=== PATIENT | female | born 1955 | race Caucasian/White ===

== ENCOUNTER 2016-12-16 14:27 | Observation (INO) | payer OTHER ==
[~2016-12-16] VITALS: Ht 162.6 cm; Wt 62.2 kg
[~2016-12-16 14:27] MED LIST: AMBIEN10 MG PO; AMITRIPTYLINE H50 MG PO; AMLODIPINE-VAL1 EAC3 PO; AVINZA30 MG PO; BUSPAR15 MG PO; CELECOXIB200 MG PO; CLONIDINE HCL0.1 MG PO; COLACE100 MG PO; CYMBALTA60 MG PO; ELAVIL10 MG PO; FLOVENT 11120 INHALA IH; GABAPENTIN300 MG PO; HYDROCODON-ACE1 EAC7 PO; IBUPROFEN400 MG PO; LISINOPRIL10 MG PO; LISINOPRIL20 MG PO; LISINOPRIL40 MG PO; LOPRESSOR50 MG PO; LORAZEPAM0.5 MG PO; LOVENOX40 MG/0.4 SC; MELOXICAM7.5 MG PO; METHADONE10 MG PO; MOBIC7.5 MG PO; MORPHINE SULFAT15 MG PO; MOTRIN800 MG PO; NAPROXEN SODIU550 MG PO; NEURONTIN100 MG PO; NORCO 10/3251 TABLET PO; OMEPRAZOLE20 MG PO; OMEPRAZOLE40 M1 PO; PANTOPRAZOLE SO40 MG PO; PROVENTIL HFA6.7 GM IH; PROZAC40 MG PO; SENNA-TIME S T1 EACH PO; THERAGRAN1 TABLET PO; TRAMADOL HCL50 MG PO; TRAZODONE HCL50 MG PO; ULTRAM50 MG PO; VITAMIN B-1100 MG PO; XANAX0.5 MG PO; ZESTRIL20 MG PO; ZOLOFT50 MG PO; ZOLPIDEM TARTRA10 MG PO; ZOLPIDEM TARTRAT5 MG PO
[2016-12-16] MEDS ORDERED: LISINOPRIL40 MG PO (14:57)
[2016-12-16] MEDS ORDERED: GABAPENTIN600 MG PO (14:58)
[2016-12-16] MEDS ORDERED: ZOLPIDEM TARTRAT5 MG PO (15:00)
[2016-12-16] MEDS ORDERED: MORPHINE SULFAT15 M1 PO (15:00)
[2016-12-16] MEDS ORDERED: MORPHINE SULFAT15 MG PO (15:01)
[2016-12-16 15:06] LABS: HEMATOCRIT 39.7 % (36.0-46.0); MCH 29.4 PG (29.0-34.0); MCHC 33.2 G/DL (30.0-36.0); MCV 88.4 FL (83-99); MEAN PLAT.VOLUME 10.3 uM^3 (9.5-12.4); PLATELET COUNT 128 K/uL (156-360); RBC DIS.WIDTH-CV 14.7 % (11.8-14.6); RBC DIS.WIDTH-SD 46.5 % (39-53); RED BLOOD COUNT 4.49 M/uL (3.80-5.20); WHITE BLOOD COUNT 11.1 K/uL (4.1-10.2)
[2016-12-16 15:14] LABS: CHLORIDE 91 mEq/L (99-109); SODIUM 129 mEq/L (136-147)
[2016-12-16 15:16] LABS: GLUCOSE 91 mg/dL (70-99); PROTHROMBIN TIME 10.4 (9.2-11.2); PTT 25.8 (25-32)
[2016-12-16 15:17] LABS: ANION GAP 17 MEQ/L (2-14)
[2016-12-16 15:19] LABS: SERUM ETHYL ALCOHOL 98 mg/dL
[2016-12-16 15:20] LABS: GFR ESTIMATE (CALCULATED) 22 mL/min/; UREA NITROGEN (BUN) 65 mg/dL (9-23)
[2016-12-16 15:51] LABS: ADD MIUA? YES; BILIRUBIN NEGATIVE; BLOOD LARGE; COLOR YELLOW ((YELLOW)); GLUCOSE (STRIP) NEGATIVE; KETONES NEGATIVE; LEUKOCYTES NEGATIVE; NITRITE NEGATIVE; PROTEIN (STRIP) 30; SPECIFIC GRAVITY 1.017 (1.000-1.030)
[2016-12-16 16:00] LABS: AMPHETAMINE NEGATIVE (500 ng/mL); BARBITURATES NEGATIVE (200 ng/mL); COCAINE NEGATIVE (150 ng/mL); INTERNAL CONTROLS VALID? YES; METHADONE PRESUMPTIVE POSITIVE (200 ng/mL); METHAMPHETAMINE NEGATIVE (500 ng/mL); OPIATES (MORPHINE) PRESUMPTIVE POSITIVE (100 ng/mL); OXYCODONE NEGATIVE (100 ng/mL); PHENCYCLIDINE NEGATIVE (25 ng/mL); PROPOXYPHENE NEGATIVE (300 ng/mL); THC CANNABINOIDS NEGATIVE (50 ng/mL); TRICYCLIC ANTIDEPRESSANTS NEGATIVE (300 ng/mL)
[2016-12-16 16:01] LABS: ADD MEDTOX COMMENT Y; BENZODIAZEPINES PRESUMPTIVE POSITIVE (150 ng/mL)
[2016-12-16 16:39] LABS: BENZODIAZEPINES QUANT VALUE 0 NG/ML
[2016-12-16 16:40] LABS: BENZODIAZEPINES, URINE SCREEN Negative (200 ng/mL)
[2016-12-16] MEDS ORDERED: ONE-A-DAY ESSE1 EAC1 PO (16:49)
[2016-12-16] MEDS ORDERED: ATORVASTATIN CA40 MG PO (16:49)
[2016-12-16] MEDS ORDERED: LO-DOSE ASPIRIN81 M2 PO (16:49)
[2016-12-16] MEDS ORDERED: LORAZEPAM0.5 MG PO (16:49)
[2016-12-16] MEDS ORDERED: SERTRALINE HCL50 MG PO (16:50)
[2016-12-16] MEDS ORDERED: FUROSEMIDE20 MG PO (16:50)
[2016-12-16 17:09] LABS: RED BLOOD CELLS RARE /HPF (0-5); WHITE BLOOD CELLS RARE /HPF (0-5)
[2016-12-16 17:10] LABS: BACTERIA RARE; CASTS NONE SEEN /LPF; CRYSTALS NONE SEEN; EPITHELIAL CELLS RARE; MUCUS NONE SEEN; UCUL ADDED? NO
[2016-12-16 17:56] LABS: MAGNESIUM 2.7 mg/dL (1.3-2.7)
[2016-12-16 17:59] LABS: TOTAL BILIRUBIN 1.3 mg/dL (0.0-1.0)
[2016-12-16 18:00] LABS: ALKALINE PHOSPHATASE 99 IU/L (3-129)
[2016-12-16 18:03] LABS: DIRECT BILIRUBIN 0.8 mg/dL (0.0-0.3)
[2016-12-16 19:55] VITALS: BP 150/70
[2016-12-16 23:47] VITALS: BP 144/64
[2016-12-17 03:44] VITALS: BP 141/72
[2016-12-17 05:45] LABS: INTER. NORMALIZED RATIO 1.1; PROTHROMBIN TIME 10.7 (9.2-11.2); PTT 26.8 (25-32)
[2016-12-17 06:40] LABS: ANION GAP 8 MEQ/L (2-14); CHLORIDE 101 MEQ/L (99-109); GLUCOSE 75 mg/dL (70-99); HEMATOCRIT 38.4 % (36.0-46.0); MCH 28.6 PG (29.0-34.0); MCHC 31.3 G/DL (30.0-36.0); MCV 91.6 FL (83-99); MEAN PLAT.VOLUME 10.7 uM^3 (9.5-12.4); PLATELET COUNT 137 K/uL (156-360); POTASSIUM 3.7 MEQ/L (3.7-5.4); RBC DIS.WIDTH-CV 14.9 % (11.8-14.6); RBC DIS.WIDTH-SD 50.3 % (39-53); RED BLOOD COUNT 4.19 M/uL (3.80-5.20); SAMPLE HEMOLYSIS CHECK 0; SAMPLE ICTERIC CHECK 0; SAMPLE LIPEMIA CHECK 0; UREA NITROGEN (BUN) 49 mg/dL (9-23)
[2016-12-17 06:41] LABS: GFR ESTIMATE (CALCULATED) 48 mL/min/; SODIUM 136 MEQ/L (136-147)
[2016-12-17 06:45] LABS: WHITE BLOOD COUNT 7.6 K/uL (4.1-10.2)
[2016-12-17 08:00] VITALS: BP 178/75
[2016-12-17 11:56] VITALS: BP 163/82
[2016-12-17 12:09] LABS: CREATINE KINASE 1244 IU/L (1-294)
[2016-12-17] MEDS ORDERED: NIFEDIPINE ER30 MG PO (12:39)
[2016-12-17] MEDS ORDERED: LISINOPRIL40 MG PO ×2 (12:39→14:17)
[2016-12-17] MEDS ORDERED: GABAPENTIN600 MG PO (14:17)
[2016-12-17] MEDS ORDERED: NEURONTIN100 MG PO (14:22)
[2016-12-17] MEDS ORDERED: LISINOPRIL20 MG PO (14:22)
== END 2016-12-18 02:35 | disposition home or self-care (01) ==
LOC: EME 14:27 → 5WEST 16:58 → EDOF 16:58 → 5WEST 19:36
PROVIDERS: Emergency Medicine; Internal Medicine
DX: N17.9 Acute kidney failure, unspecified (principal); F10.230 Alcohol dependence with withdrawal, uncomplicated; E87.1 Hypo-osmolality and hyponatremia; E86.0 Dehydration; I10 Essential (primary) hypertension; B18.2 Chronic viral hepatitis C; G89.29 Other chronic pain; M54.9 Dorsalgia, unspecified; D69.6 Thrombocytopenia, unspecified; J44.9 Chronic obstructive pulmonary disease, unspecified; E78.5 Hyperlipidemia, unspecified; Z91.19 Patient's noncompliance with other medical treatment and regimen
CPT/HCPCS: 70450; 74150; 80048; 80076; 81003; 82550; 82570; 83605; 83735; 84100; 84156; 84999; 85025; 85027; 85610; 85730; 93005; 94799; 99281; 99285; C9113; G0378; G0480; G8987 GO CI; G8988 GO CH; J2060; J3411; J3475; J7030

== ENCOUNTER 2016-12-18 19:06 | Emergency (ER) | payer OTHER ==
[~2016-12-18] VITALS: Ht 162.6 cm; Wt 55.1 kg
[~2016-12-18 19:06] MED LIST changes: +ATORVASTATIN CA40 MG PO; +FUROSEMIDE20 MG PO; +GABAPENTIN600 MG PO; +LO-DOSE ASPIRIN81 M2 PO; +MORPHINE SULFAT15 M1 PO; +NIFEDIPINE ER30 MG PO; +ONE-A-DAY ESSE1 EAC1 PO; +SERTRALINE HCL50 MG PO
[2016-12-18 20:04] LABS: ADD MIUA? YES; BILIRUBIN NEGATIVE; BLOOD TRACE; COLOR YELLOW ((YELLOW)); GLUCOSE (STRIP) NEGATIVE; KETONES NEGATIVE; LEUKOCYTES NEGATIVE; NITRITE NEGATIVE; PROTEIN (STRIP) 30; SPECIFIC GRAVITY 1.015 (1.000-1.030); UROBILINOGEN 0.2 MG/DL (0.2-1.0)
[2016-12-18 20:26] LABS: AMPHETAMINE NEGATIVE (500 ng/mL); BARBITURATES NEGATIVE (200 ng/mL); BENZODIAZEPINES PRESUMPTIVE POSITIVE (150 ng/mL); COCAINE NEGATIVE (150 ng/mL); INTERNAL CONTROLS VALID? YES; METHADONE PRESUMPTIVE POSITIVE (200 ng/mL); METHAMPHETAMINE NEGATIVE (500 ng/mL); OPIATES (MORPHINE) PRESUMPTIVE POSITIVE (100 ng/mL); OXYCODONE NEGATIVE (100 ng/mL); PHENCYCLIDINE NEGATIVE (25 ng/mL); PROPOXYPHENE NEGATIVE (300 ng/mL); THC CANNABINOIDS NEGATIVE (50 ng/mL); TRICYCLIC ANTIDEPRESSANTS NEGATIVE (300 ng/mL)
[2016-12-18 20:27] LABS: ADD MEDTOX COMMENT Y
[2016-12-18 20:37] LABS: BACTERIA RARE; CASTS NONE SEEN /LPF; CRYSTALS NONE SEEN; EPITHELIAL CELLS RARE; MUCUS NONE SEEN; RED BLOOD CELLS NONE SEEN /HPF (0-5); UBAC NUMBER 2747.9; UCUL ADDED? NO; UEPI NUMBER 5.5; URBC NUMBER 9.5; UWBC NUMBER 5.2; WHITE BLOOD CELLS NONE SEEN /HPF (0-5)
[2016-12-18 20:55] LABS: HEMATOCRIT 46.3 % (36.0-46.0); MCH 29.7 PG (29.0-34.0); MCHC 34.3 G/DL (30.0-36.0); MCV 86.4 FL (83-99); MEAN PLAT.VOLUME 9.8 uM^3 (9.5-12.4); PLATELET COUNT 179 K/uL (156-360); RBC DIS.WIDTH-CV 14.8 % (11.8-14.6); RBC DIS.WIDTH-SD 45.4 % (39-53); RED BLOOD COUNT 5.36 M/uL (3.80-5.20)
[2016-12-18 20:59] LABS: CHLORIDE 93 mEq/L (99-109); POTASSIUM 2.9 mEq/L (3.7-5.4); SODIUM 134 mEq/L (136-147)
[2016-12-18 21:02] LABS: ANION GAP 16 MEQ/L (2-14)
[2016-12-18 21:03] LABS: TOTAL BILIRUBIN 1.1 mg/dL (0.0-1.0)
[2016-12-18 21:04] LABS: SERUM ETHYL ALCOHOL 152 mg/dL
[2016-12-18 21:05] LABS: ALKALINE PHOSPHATASE 90 IU/L (3-129); GFR ESTIMATE (CALCULATED) > 59 mL/min/; GLUCOSE 94 mg/dL (70-99)
[2016-12-18 21:07] LABS: BENZODIAZEPINES, URINE SCREEN POSITIVE (200 ng/mL)
[2016-12-18 21:08] LABS: CREATINE KINASE 353 IU/L (1-294); UREA NITROGEN (BUN) 14 mg/dL (9-23)
[2016-12-18 22:56] VITALS: BP 134/69
== END 2016-12-18 22:58 | disposition home or self-care (01) ==
LOC: EME → EDBD 19:06 → EME 19:06
PROVIDERS: Emergency Medicine
DX: E87.6 Hypokalemia (principal); F10.229 Alcohol dependence with intoxication, unspecified; K70.10 Alcoholic hepatitis without ascites; E87.2 Acidosis; G89.29 Other chronic pain; Z79.891 Long term (current) use of opiate analgesic; Z79.82 Long term (current) use of aspirin; F17.200 Nicotine dependence, unspecified, uncomplicated; Y90.6 Blood alcohol level of 120-199 mg/100 ml
CPT/HCPCS: 71010; 80053; 81003; 82550; 83605; 84999; 85027; 99281; 99284; G0480; J7030

== ENCOUNTER 2017-04-13 13:01 | Inpatient (IN) | payer OTHER ==
[~2017-04-13] VITALS: Ht 162.6 cm; Wt 61.0 kg
[2017-04-13 14:30] LABS: MCH 30.9 PG (29.0-34.0); MCHC 33.8 G/DL (30.0-36.0); MCV 91.3 FL (83-99); MEAN PLAT.VOLUME 9.9 uM^3 (9.5-12.4); PLATELET COUNT 110 K/uL (156-360); RBC DIS.WIDTH-CV 13.5 % (11.8-14.6); RED BLOOD COUNT 5.15 M/uL (3.80-5.20)
[2017-04-13 14:42] LABS: CHLORIDE 102 mEq/L (99-109); SODIUM 137 mEq/L (136-147)
[2017-04-13 14:44] LABS: GLUCOSE 121 mg/dL (70-99)
[2017-04-13 14:45] LABS: ANION GAP 14 MEQ/L (2-14)
[2017-04-13 14:47] LABS: SERUM ETHYL ALCOHOL 327 mg/dL
[2017-04-13 14:48] LABS: GFR ESTIMATE (CALCULATED) > 59 mL/min/
[2017-04-13 14:49] LABS: UREA NITROGEN (BUN) 16 mg/dL (9-23)
[2017-04-13 16:44] LABS: AMPHETAMINE NEGATIVE (500 ng/mL); BARBITURATES NEGATIVE (200 ng/mL); BENZODIAZEPINES PRESUMPTIVE POSITIVE (150 ng/mL); COCAINE NEGATIVE (150 ng/mL); INTERNAL CONTROLS VALID? YES; METHADONE PRESUMPTIVE POSITIVE (200 ng/mL); METHAMPHETAMINE NEGATIVE (500 ng/mL); OPIATES (MORPHINE) NEGATIVE (100 ng/mL); OXYCODONE NEGATIVE (100 ng/mL); PHENCYCLIDINE NEGATIVE (25 ng/mL); PROPOXYPHENE NEGATIVE (300 ng/mL); THC CANNABINOIDS NEGATIVE (50 ng/mL); TRICYCLIC ANTIDEPRESSANTS NEGATIVE (300 ng/mL)
[2017-04-13 16:50] LABS: ADD MEDTOX COMMENT Y
[2017-04-13 17:07] LABS: BENZODIAZEPINES, URINE SCREEN POSITIVE (200 ng/mL)
[2017-04-14] VITALS (7 sets, daily range): BP systolic 156–192; BP diastolic 81–97
[2017-04-14 07:12] LABS: HEMATOCRIT 47.1 % (36.0-46.0); MCH 30.6 PG (29.0-34.0); MCHC 33.8 G/DL (30.0-36.0); MCV 90.6 FL (83-99); MEAN PLAT.VOLUME 10.9 uM^3 (9.5-12.4); PLATELET COUNT 103 K/uL (156-360); RBC DIS.WIDTH-CV 13.3 % (11.8-14.6); RBC DIS.WIDTH-SD 44.6 % (39-53); WHITE BLOOD COUNT 8.2 K/uL (4.1-10.2)
[2017-04-14] MEDS ORDERED: METOPROLOL SUCC50 MG PO (11:59)
[2017-04-15 03:45] VITALS: BP 170/88
[2017-04-15 07:30] VITALS: BP 190/114
[2017-04-15 07:46] LABS: ALKALINE PHOSPHATASE 74 IU/L (3-129); ANION GAP 11 MEQ/L (2-14); CHLORIDE 98 MEQ/L (99-109); GFR ESTIMATE (CALCULATED) > 59 mL/min/; GLUCOSE 96 mg/dL (70-99); POTASSIUM 3.8 MEQ/L (3.7-5.4); SAMPLE HEMOLYSIS CHECK 0; SAMPLE ICTERIC CHECK 0; SAMPLE LIPEMIA CHECK 0; SODIUM 135 MEQ/L (136-147); TOTAL BILIRUBIN 1.7 MG/DL (0.0-1.0); UREA NITROGEN (BUN) 18 mg/dL (9-23)
[2017-04-15 11:11] VITALS: BP 167/83
[2017-04-15 15:10] VITALS: BP 176/83
[2017-04-15 20:05] VITALS: BP 170/90
[2017-04-15 23:52] VITALS: BP 177/78
[2017-04-16 03:43] VITALS: BP 180/95
[2017-04-16 08:21] VITALS: BP 175/96
[2017-04-16 12:16] VITALS: BP 162/88
[2017-04-16 15:57] VITALS: BP 148/92
[2017-04-16 20:43] VITALS: BP 176/86
[2017-04-17] VITALS (7 sets, daily range): BP systolic 115–165; BP diastolic 61–105
[2017-04-18 07:35] VITALS: BP 149/82
[2017-04-18 12:02] VITALS: BP 156/75
[2017-04-18 17:10] VITALS: BP 156/89
[2017-04-18 19:54] VITALS: BP 165/85
[2017-04-18 23:44] VITALS: BP 165/83
[2017-04-19 04:00] VITALS: BP 193/89
[2017-04-19 05:02] VITALS: BP 179/84
[2017-04-19 07:49] VITALS: BP 177/82
[2017-04-19] MEDS ORDERED: LOPRESSOR50 MG PO (11:12)
[2017-04-19 11:33] VITALS: BP 156/77
== END 2017-04-19 14:15 | disposition home or self-care (01) | DRG 897 ==
LOC: EME 13:01 → EDOF 21:22 → EME 21:22 → 5SOUTH 04-14 02:19 → EDOF 04-14 02:19 → 5SOUTH 04-14 03:36
PROVIDERS: Emergency Medicine; Internal Medicine
DX: F10.229 Alcohol dependence with intoxication, unspecified (principal); F10.239 Alcohol dependence with withdrawal, unspecified; F33.41 Major depressive disorder, recurrent, in partial remission; J44.9 Chronic obstructive pulmonary disease, unspecified; R45.851 Suicidal ideations; I10 Essential (primary) hypertension; K21.9 Gastro-esophageal reflux disease without esophagitis; G89.29 Other chronic pain; Z96.651 Presence of right artificial knee joint; F17.210 Nicotine dependence, cigarettes, uncomplicated; B18.2 Chronic viral hepatitis C; M54.9 Dorsalgia, unspecified
CPT/HCPCS: 80048; 80053; 84999; 85027; 90839; 93970; 99281; 99285; G0480; J1644; J2060; J3411; J3475; J7030; J7050; S0028

== ENCOUNTER 2017-05-10 14:00 | Emergency (ER) | payer OTHER ==
[~2017-05-10] VITALS: Ht 167.6 cm; Wt 65.8 kg
[~2017-05-10 14:00] MED LIST changes: +METOPROLOL SUCC50 MG PO
[2017-05-10 15:13] LABS: HEMATOCRIT 41.6 % (36.0-46.0); MCH 31.3 PG (29.0-34.0); MCHC 34.1 G/DL (30.0-36.0); MCV 91.8 FL (83-99); RBC DIS.WIDTH-CV 14.3 % (11.8-14.6); RBC DIS.WIDTH-SD 48.6 % (39-53); RED BLOOD COUNT 4.53 M/uL (3.80-5.20); WHITE BLOOD COUNT 7.6 K/uL (4.1-10.2)
[2017-05-10 15:33] LABS: CHLORIDE 107 mEq/L (99-109); POTASSIUM 4.2 mEq/L (3.7-5.4); SODIUM 143 mEq/L (136-147)
[2017-05-10 15:34] LABS: GLUCOSE 87 mg/dL (70-99)
[2017-05-10 15:36] LABS: ANION GAP 11 MEQ/L (2-14)
[2017-05-10 15:37] LABS: SERUM ETHYL ALCOHOL 358 mg/dL
[2017-05-10 15:38] LABS: GFR ESTIMATE (CALCULATED) > 59 mL/min/
[2017-05-10 15:39] LABS: UREA NITROGEN (BUN) 24 mg/dL (9-23)
[2017-05-10 16:39] LABS: PLATELET COUNT 177 K/uL (156-360)
[2017-05-10 17:49] LABS: AMPHETAMINE NEGATIVE (500 ng/mL); BARBITURATES NEGATIVE (200 ng/mL); BENZODIAZEPINES PRESUMPTIVE POSITIVE (150 ng/mL); COCAINE NEGATIVE (150 ng/mL); INTERNAL CONTROLS VALID? YES; METHADONE NEGATIVE (200 ng/mL); METHAMPHETAMINE NEGATIVE (500 ng/mL); OPIATES (MORPHINE) NEGATIVE (100 ng/mL); OXYCODONE NEGATIVE (100 ng/mL); PHENCYCLIDINE NEGATIVE (25 ng/mL); PROPOXYPHENE NEGATIVE (300 ng/mL); THC CANNABINOIDS NEGATIVE (50 ng/mL); TRICYCLIC ANTIDEPRESSANTS NEGATIVE (300 ng/mL)
[2017-05-10 17:50] LABS: ADD MEDTOX COMMENT Y
[2017-05-10 18:43] LABS: BENZODIAZEPINES, URINE SCREEN POSITIVE (200 ng/mL)
[2017-05-11] MEDS ORDERED: LIBRIUM25 MG PO (02:10)
[2017-05-11 02:52] VITALS: BP 174/97
== END 2017-05-11 02:11 | disposition home or self-care (01) ==
LOC: EME 14:00
DX: F10.229 Alcohol dependence with intoxication, unspecified (principal); F33.1 Major depressive disorder, recurrent, moderate; R51 Headache; I10 Essential (primary) hypertension; Y90.8 Blood alcohol level of 240 mg/100 ml or more; Z79.82 Long term (current) use of aspirin; F17.200 Nicotine dependence, unspecified, uncomplicated
CPT/HCPCS: 70450; 80048; 84999; 85027; 90839; 99281; 99285; G0480; J2060

== ENCOUNTER 2017-11-13 20:10 | Inpatient (IN) | payer OTHER ==
[~2017-11-13] VITALS: Ht 162.6 cm; Wt 72.0 kg
[~2017-11-13 20:10] MED LIST changes: +LIBRIUM25 MG PO
[2017-11-13 20:55] LABS: HEMATOCRIT 44.3 % (36.0-46.0); MCH 30.3 PG (29.0-34.0); MCHC 33.9 G/DL (30.0-36.0); MCV 89.5 FL (83-99); MEAN PLAT.VOLUME 8.6 uM^3 (9.5-12.4); PLATELET COUNT 277 K/uL (156-360); RBC DIS.WIDTH-CV 13.2 % (11.8-14.6); RBC DIS.WIDTH-SD 43.2 % (39-53); RED BLOOD COUNT 4.95 M/uL (3.80-5.20); WHITE BLOOD COUNT 11.5 K/uL (4.1-10.2)
[2017-11-13 21:00] LABS: CHLORIDE 104 mEq/L (99-109); POTASSIUM 3.8 mEq/L (3.7-5.4); SODIUM 142 mEq/L (136-147)
[2017-11-13 21:02] LABS: GLUCOSE 96 mg/dL (70-99)
[2017-11-13 21:03] LABS: ANION GAP 11 MEQ/L (2-14)
[2017-11-13 21:05] LABS: GFR ESTIMATE (CALCULATED) > 59 mL/min/; SERUM ETHYL ALCOHOL 281 mg/dL
[2017-11-13 21:06] LABS: UREA NITROGEN (BUN) 20 mg/dL (9-23)
[2017-11-14 00:14] LABS: ADD MEDTOX COMMENT Y; AMPHETAMINE NEGATIVE (500 ng/mL); BARBITURATES NEGATIVE (200 ng/mL); BENZODIAZEPINES PRESUMPTIVE POSITIVE (150 ng/mL); COCAINE NEGATIVE (150 ng/mL); INTERNAL CONTROLS VALID? YES; METHADONE NEGATIVE (200 ng/mL); METHAMPHETAMINE NEGATIVE (500 ng/mL); OPIATES (MORPHINE) NEGATIVE (100 ng/mL); OXYCODONE NEGATIVE (100 ng/mL); PHENCYCLIDINE NEGATIVE (25 ng/mL); PROPOXYPHENE NEGATIVE (300 ng/mL); THC CANNABINOIDS NEGATIVE (50 ng/mL); TRICYCLIC ANTIDEPRESSANTS NEGATIVE (300 ng/mL)
[2017-11-14 02:53] LABS: BENZODIAZEPINES, URINE SCREEN POSITIVE (200 ng/mL)
[2017-11-14 09:42] VITALS: BP 181/95
[2017-11-14 09:56] VITALS: BP 181/95
[2017-11-14] MEDS ORDERED: EXFORGE HCT 101 EAC2 PO (11:46)
[2017-11-14] MEDS ORDERED: DIOVAN HCT 11 TABLET PO (11:47)
[2017-11-14] MEDS ORDERED: DETROL LA4 MG PO (11:50)
[2017-11-14] MEDS ORDERED: CATAPRES0.1 MG PO (11:51)
[2017-11-14] MEDS ORDERED: OXAZEPAM10 MG PO (11:54)
[2017-11-14] MEDS ORDERED: ATARAX,VISTARIL25 MG PO (11:56)
[2017-11-14] MEDS ORDERED: AMBIEN10 MG PO (11:58)
[2017-11-14] MEDS ORDERED: AMBIEN5 MG PO (12:01)
[2017-11-14] MEDS ORDERED: ADVIL PM LI1 CAPSULE PO (12:04)
[2017-11-14] MEDS ORDERED: NICODERM CQ1 EAC2 TD (12:07)
[2017-11-14 14:28] VITALS: BP 196/96
[2017-11-14 15:37] VITALS: BP 164/74
[2017-11-14 19:38] VITALS: BP 137/87
[2017-11-15 07:51] VITALS: BP 206/110
[2017-11-15 12:59] VITALS: BP 161/75
[2017-11-15 15:25] VITALS: BP 133/63
[2017-11-15 17:45] VITALS: BP 189/84
[2017-11-16 07:52] VITALS: BP 158/81
[2017-11-16 13:15] VITALS: BP 143/73
[2017-11-16 15:32] VITALS: BP 133/66
[2017-11-16 21:39] VITALS: BP 160/70
[2017-11-17 07:56] VITALS: BP 117/66
[2017-11-17 09:53] VITALS: BP 129/6
[2017-11-17 15:27] VITALS: BP 134/60
[2017-11-17 20:30] VITALS: BP 192/85
[2017-11-18 07:45] VITALS: BP 158/70
[2017-11-18 10:24] VITALS: BP 140/80
[2017-11-18 12:18] VITALS: BP 138/72
[2017-11-18 15:22] VITALS: BP 140/90
[2017-11-18 19:55] VITALS: BP 132/66
[2017-11-18 22:16] VITALS: BP 156/84
[2017-11-19 07:56] VITALS: BP 162/88
[2017-11-19] MEDS ORDERED: CLONIDINE HCL0.1 MG PO (09:05)
[2017-11-19] MEDS ORDERED: APRESOLINE25 MG PO (09:05)
[2017-11-19] MEDS ORDERED: LOPRESSOR50 MG PO (09:05)
[2017-11-19] MEDS ORDERED: SERTRALINE HCL100 MG PO (09:05)
[2017-11-19] MEDS ORDERED: DITROPAN5 MG PO (09:05)
[2017-11-19 11:50] VITALS: BP 137/82
== END 2017-11-19 14:08 | disposition home or self-care (01) | DRG 885 ==
LOC: EME 20:10 → EDOF 11-14 05:37 → 1WEST 11-14 05:37 → ENRESERV 11-14 07:11 → 1WEST 11-14 09:31
DX: F33.0 Major depressive disorder, recurrent, mild (principal); F10.220 Alcohol dependence with intoxication, uncomplicated; Y90.8 Blood alcohol level of 240 mg/100 ml or more; R45.851 Suicidal ideations; Z59.0 Homelessness; Z96.653 Presence of artificial knee joint, bilateral; B18.2 Chronic viral hepatitis C; F17.200 Nicotine dependence, unspecified, uncomplicated; F41.9 Anxiety disorder, unspecified; J44.9 Chronic obstructive pulmonary disease, unspecified; I10 Essential (primary) hypertension; Z56.0 Unemployment, unspecified; E66.3 Overweight; Z68.27 Body mass index [BMI] 27.0-27.9, adult
CPT/HCPCS: 71020; 80048; 84999; 85027; 90839; 97150 GO; 97165 GO; 99281; 99284; G0480

== ENCOUNTER 2018-02-25 09:38 | Inpatient (IN) | payer OTHER ==
[~2018-02-25] VITALS: Ht 162.6 cm; Wt 74.6 kg
[~2018-02-25 09:38] MED LIST changes: +ADVIL PM LI1 CAPSULE PO; +AMBIEN5 MG PO; +APRESOLINE25 MG PO; +ATARAX,VISTARIL25 MG PO; +CATAPRES0.1 MG PO; +DETROL LA4 MG PO; +DIOVAN HCT 11 TABLET PO; +DITROPAN5 MG PO; +EXFORGE HCT 101 EAC2 PO; +NICODERM CQ1 EAC2 TD; +OXAZEPAM10 MG PO; +SERTRALINE HCL100 MG PO
[2018-02-25 11:04] LABS: HEMATOCRIT 40.8 % (36.0-46.0); MCH 29.9 PG (29.0-34.0); MCHC 34.3 G/DL (30.0-36.0); MCV 87.2 FL (83-99); PLATELET COUNT 222 K/uL (156-360); RBC DIS.WIDTH-CV 12.8 % (11.8-14.6); RBC DIS.WIDTH-SD 40.1 % (39-53); RED BLOOD COUNT 4.68 M/uL (3.80-5.20); WHITE BLOOD COUNT 13.4 K/uL (4.1-10.2)
[2018-02-25 11:14] LABS: ALBUMIN 3.1 g/dL (3.2-4.8)
[2018-02-25 11:15] LABS: CHLORIDE 96 mEq/L (99-109); POTASSIUM 3.4 mEq/L (3.7-5.4); SODIUM 135 mEq/L (136-147)
[2018-02-25 11:17] LABS: GLUCOSE 116 mg/dL (70-99); TOTAL PROTEIN 7.3 g/dL (6.4-8.3)
[2018-02-25 11:19] LABS: TOTAL BILIRUBIN 1.1 mg/dL (0.0-1.0)
[2018-02-25 11:20] LABS: ALKALINE PHOSPHATASE 87 IU/L (3-129)
[2018-02-25 11:21] LABS: CREATININE 0.8 mg/dL (0.6-1.3); GFR ESTIMATE (CALCULATED) > 59 mL/min/
[2018-02-25 11:22] LABS: AST (GOT) 31 IU/L (2-34); UREA NITROGEN (BUN) 13 mg/dL (9-23)
[2018-02-25 11:23] LABS: ALT (GPT) 21 IU/L (3-49)
[2018-02-25 11:26] LABS: TROP-I INTERPRETATION NEGATIVE; TROPONIN-I < 0.01 ng/mL (0.0-0.30)
[2018-02-25] MEDS ORDERED: LIPITOR40 MG PO (13:48)
[2018-02-25] MEDS ORDERED: CATAPRES0.1 MG PO (14:01)
[2018-02-25] MEDS ORDERED: PRILOSEC20 MG PO (14:03)
[2018-02-25] MEDS ORDERED: ZOLOFT100 MG PO (14:04)
[2018-02-25] MEDS ORDERED: FLOVENT 22120 INHALA IH (14:05)
[2018-02-25] MEDS ORDERED: VENTOLIN HFA18 GM IH (14:06)
[2018-02-25] MEDS ORDERED: IBUPROFEN800 MG PO (14:06)
[2018-02-25] MEDS ORDERED: ZOLPIDEM TARTRAT5 MG PO (14:07)
[2018-02-25] MEDS ORDERED: ATARAX10 MG PO ×2 (14:07→14:30)
[2018-02-25] MEDS ORDERED: SERAX10 MG PO ×2 (14:08→14:09)
[2018-02-25] MEDS ORDERED: LYRICA50 MG PO (14:32)
[2018-02-25 17:50] VITALS: BP 113/58
[2018-02-25 20:18] VITALS: BP 149/72
[2018-02-26 00:38] VITALS: BP 146/77
[2018-02-26 04:34] VITALS: BP 167/77
[2018-02-26 06:45] LABS: BASOPHIL (%) 0.3 % (0-1); EOSINOPHIL (%) 0.1 % (0-5); HEMATOCRIT 40.8 % (36.0-46.0); HEMOGLOBIN 13.4 G/DL (11.9-15.5); IMMATURE GRANULOCYTE (%) 2.6 % (0.0-0.7); LYMPHOCYTE (%) 8.4 % (15-42); LYMPHOCYTE COUNT 1.1 K/uL (1.0-2.8); MCHC 32.8 G/DL (30.0-36.0); MCV 88.3 FL (83-99); MONOCYTE (%) 3.7 % (3-12); MONOCYTE COUNT 0.5 K/uL (0-0.8); NEUTROPHIL (%) 84.9 % (45-76); NEUTROPHIL COUNT 11.6 K/uL (1.8-6.4); PLATELET COUNT 254 K/uL (156-360); RBC DIS.WIDTH-CV 12.6 % (11.8-14.6); RBC DIS.WIDTH-SD 40.5 % (39-53); RED BLOOD COUNT 4.62 M/uL (3.80-5.20); WHITE BLOOD COUNT 13.6 K/uL (4.1-10.2)
[2018-02-26 07:07] LABS: CHLORIDE 101 MEQ/L (99-109); CREATININE 0.7 MG/DL (0.6-1.3); GFR ESTIMATE (CALCULATED) > 59 mL/min/; GLUCOSE 173 mg/dL (70-99); POTASSIUM 3.3 MEQ/L (3.7-5.4); SODIUM 139 MEQ/L (136-147); UREA NITROGEN (BUN) 14 mg/dL (9-23)
[2018-02-26 07:31] VITALS: BP 145/65
[2018-02-26 11:43] VITALS: BP 140/66
[2018-02-26 16:43] VITALS: BP 143/67
[2018-02-26 20:40] VITALS: BP 120/58
[2018-02-27 00:21] VITALS: BP 159/72
[2018-02-27 04:19] VITALS: BP 123/63
[2018-02-27 07:07] LABS: CHLORIDE 105 MEQ/L (99-109); CREATININE 0.7 MG/DL (0.6-1.3); GFR ESTIMATE (CALCULATED) > 59 mL/min/; GLUCOSE 155 mg/dL (70-99); POTASSIUM 3.8 MEQ/L (3.7-5.4); SODIUM 139 MEQ/L (136-147); UREA NITROGEN (BUN) 18 mg/dL (9-23)
[2018-02-27 08:42] VITALS: BP 138/68
[2018-02-27 12:23] VITALS: BP 150/73
[2018-02-27 15:30] VITALS: BP 188/77
[2018-02-27] MEDS ORDERED: AUGMENTIN875 MG PO (17:08)
== END 2018-02-27 19:23 | disposition home or self-care (01) | DRG 193 ==
LOC: EME 09:38 → EDOF 13:06 → ENRESERV 13:11 → EDOF 13:13 → ENRESERV 16:18 → 5EAST 17:29
PROVIDERS: Family Medicine; Hospitalist; Nurse Practitioner Family
DX: J18.9 Pneumonia, unspecified organism (principal); J96.01 Acute respiratory failure with hypoxia; J44.0 Chronic obstructive pulmonary disease with (acute) lower respiratory infection; J44.1 Chronic obstructive pulmonary disease with (acute) exacerbation; I10 Essential (primary) hypertension; M54.16 Radiculopathy, lumbar region; E87.6 Hypokalemia; Z96.651 Presence of right artificial knee joint; F17.200 Nicotine dependence, unspecified, uncomplicated
CPT/HCPCS: 71046; 71275; 80048; 80053; 81003; 83605; 84484; 85025; 85027; 85379; 87040; 87070; 87205; 87449; 93005; 93971; 94640; 94640 76; 94799; 99202; 99281; 99285; J0295; J0456; J0696; J1650; J2920; J2930; J7030; J7050; J7512

== ENCOUNTER 2018-03-11 16:24 | Emergency (ER) | payer OTHER ==
[~2018-03-11] VITALS: Ht 162.6 cm; Wt 78.4 kg
[~2018-03-11 16:24] MED LIST changes: +ATARAX10 MG PO; +AUGMENTIN875 MG PO; +FLOVENT 22120 INHALA IH; +IBUPROFEN800 MG PO; +LIPITOR40 MG PO; +LYRICA50 MG PO; +PRILOSEC20 MG PO; +SERAX10 MG PO; +VENTOLIN HFA18 GM IH; +ZOLOFT100 MG PO
[2018-03-11] MEDS ORDERED: PERCOCET 5/31 TABLET PO (17:14)
[2018-03-11] MEDS ORDERED: FLEXERIL10 MG PO (17:14)
[2018-03-11 18:27] VITALS: BP 99/44
== END 2018-03-11 18:30 | disposition home or self-care (01) ==
LOC: EME 16:24
DX: G89.29 Other chronic pain (principal); M54.5 Low back pain; J44.9 Chronic obstructive pulmonary disease, unspecified; F41.9 Anxiety disorder, unspecified; F32.9 Major depressive disorder, single episode, unspecified; F17.200 Nicotine dependence, unspecified, uncomplicated; Z96.651 Presence of right artificial knee joint; Z79.82 Long term (current) use of aspirin
CPT/HCPCS: 94640; 99281; 99284

== ENCOUNTER 2018-03-16 11:13 | Emergency (ER) | payer OTHER ==
[~2018-03-16] VITALS: Ht 162.6 cm; Wt 77.3 kg
[~2018-03-16 11:13] MED LIST changes: +FLEXERIL10 MG PO; +PERCOCET 5/31 TABLET PO
[2018-03-16] MEDS ORDERED: ULTRAM50 MG PO (14:40)
[2018-03-16 14:50] VITALS: BP 176/89
== END 2018-03-16 15:02 | disposition home or self-care (01) ==
LOC: EME 11:13
DX: R60.0 Localized edema (principal); M54.32 Sciatica, left side; F17.200 Nicotine dependence, unspecified, uncomplicated; J44.9 Chronic obstructive pulmonary disease, unspecified; G89.29 Other chronic pain; F32.9 Major depressive disorder, single episode, unspecified; F41.9 Anxiety disorder, unspecified; Z96.653 Presence of artificial knee joint, bilateral; Z79.82 Long term (current) use of aspirin
CPT/HCPCS: 93971; 99281; 99284

== ENCOUNTER 2018-04-28 16:06 | Inpatient (IN) | payer OTHER ==
[~2018-04-28] VITALS: Ht 162.6 cm; Wt 72.5 kg
[2018-04-28 17:29] LABS: HEMATOCRIT 31.7 % (36.0-46.0); MCH 29.7 PG (29.0-34.0); MCHC 34.7 G/DL (30.0-36.0); MCV 85.7 FL (83-99); RBC DIS.WIDTH-CV 13.7 % (11.8-14.6); RBC DIS.WIDTH-SD 42.9 % (39-53)
[2018-04-28 17:30] LABS: ALBUMIN 2.9 g/dL (3.2-4.8)
[2018-04-28 17:30] LABS: APPEARANCE CLEAR ((CLEAR)); BILIRUBIN SMALL; BLOOD MODERATE; COLOR AMBER ((YELLOW)); GLUCOSE (STRIP) NEGATIVE; KETONES NEGATIVE; LEUKOCYTES TRACE; NITRITE NEGATIVE; PROTEIN (STRIP) 30; SPECIFIC GRAVITY 1.015 (1.000-1.030)
[2018-04-28 17:31] LABS: CHLORIDE 93 mEq/L (99-109); POTASSIUM 3.9 mEq/L (3.7-5.4); SODIUM 128 mEq/L (136-147)
[2018-04-28 17:33] LABS: GLUCOSE 111 mg/dL (70-99); TOTAL PROTEIN 6.9 g/dL (6.4-8.3)
[2018-04-28 17:36] LABS: SERUM ETHYL ALCOHOL < 10 mg/dL
[2018-04-28 17:36] LABS: BACTERIA NONE SEEN /HPF; EPITHELIAL CELLS RARE /HPF; HYALINE CASTS 15-20 /LPF; MUCUS TRACE /LPF; RED BLOOD CELLS 0-5 /HPF (0-5); UCUL ADDED? YES; WHITE BLOOD CELLS 15-20 /HPF (0-5)
[2018-04-28 17:37] LABS: ALKALINE PHOSPHATASE 412 IU/L (3-129); CREATININE 3.6 mg/dL (0.6-1.3); GFR ESTIMATE (CALCULATED) 14 mL/min/
[2018-04-28 17:38] LABS: AST (GOT) 84 IU/L (2-34)
[2018-04-28 17:39] LABS: UREA NITROGEN (BUN) 67 mg/dL (9-23)
[2018-04-28 17:40] LABS: ALT (GPT) 34 IU/L (3-49); SALICYLATE < 5.0 MG/DL (15-30)
[2018-04-28 17:40] LABS: TROP-I INTERPRETATION NEGATIVE; TROPONIN-I 0.01 ng/mL (0.0-0.30)
[2018-04-28 17:41] LABS: ACETAMINOPHEN (TYLENOL) < 10 mcg/mL (10-30)
[2018-04-28 17:43] LABS: AMPHETAMINE NEGATIVE (500 ng/mL); BARBITURATES NEGATIVE (200 ng/mL); BENZODIAZEPINES PRESUMPTIVE POSITIVE (150 ng/mL); BUPRENORPHINE NEGATIVE (10 ng/mL); COCAINE NEGATIVE (150 ng/mL); METHADONE NEGATIVE (200 ng/mL); METHAMPHETAMINE NEGATIVE (500 ng/mL); OPIATES (MORPHINE) PRESUMPTIVE POSITIVE (100 ng/mL); OXYCODONE NEGATIVE (100 ng/mL); PHENCYCLIDINE NEGATIVE (25 ng/mL); PROPOXYPHENE NEGATIVE (300 ng/mL); THC CANNABINOIDS NEGATIVE (50 ng/mL); TRICYCLIC ANTIDEPRESSANTS PRESUMPTIVE POSITIVE (300 ng/mL)
[2018-04-28 18:20] LABS: ABS NEUTROPHIL COUNT 14.6; BAND NEUTROPHILS 56.1 % (0-8.0); BURR CELLS 3+; EOSINOPHIL ABS CT 0; LYMPHOCYTES 3.5 % (15.0-45.0); MONOCYTES 5.3 % (0-9.0); PLAT.SUFFICIENCY ADEQUATE; PLATELET COUNT 281 K/uL (156-360); POIKILOCYTOSIS 3+; POLYCHROMASIA 1+; SEG.NEUTROPHILS 35.1 % (46.0-76.0)
[2018-04-28 18:21] LABS: BENZODIAZEPINES, URINE SCREEN Negative (200 ng/mL)
[2018-04-28 23:20] VITALS: BP 111/53
[2018-04-29 04:24] VITALS: BP 111/56
[2018-04-29 06:00] LABS: PLATELET COUNT 280 K/uL (156-360)
[2018-04-29 06:15] LABS: CHLORIDE 102 MEQ/L (99-109); GFR ESTIMATE (CALCULATED) 27 mL/min/; GLUCOSE 90 mg/dL (70-99); POTASSIUM 3.2 MEQ/L (3.7-5.4); SODIUM 132 MEQ/L (136-147); UREA NITROGEN (BUN) 56 mg/dL (9-23)
[2018-04-29 06:52] LABS: HEMATOCRIT 29.7 % (36.0-46.0); HEMATOLOGY COMMENT 1 SMEAR COMPATIBLE; MCH 28.6 PG (29.0-34.0); MCHC 33.7 G/DL (30.0-36.0); MCV 84.9 FL (83-99); RBC DIS.WIDTH-CV 13.8 % (11.8-14.6); RBC DIS.WIDTH-SD 42.5 % (39-53); WHITE BLOOD COUNT 15.7 K/uL (4.1-10.2)
[2018-04-29 08:03] VITALS: BP 118/58
[2018-04-29] MEDS ORDERED: VALSARTAN-HCTZ1 EAC1 PO (10:14)
[2018-04-29] MEDS ORDERED: METOPROLOL TART50 MG PO (10:14)
[2018-04-29] MEDS ORDERED: ATORVASTATIN CA40 MG PO (10:15)
[2018-04-29] MEDS ORDERED: CLONIDINE HCL0.1 MG PO (10:15)
[2018-04-29] MEDS ORDERED: ALPRAZOLAM0.25 M2 PO (10:16)
[2018-04-29] MEDS ORDERED: SERTRALINE HCL100 MG PO (10:16)
[2018-04-29] MEDS ORDERED: OMEPRAZOLE20 MG PO (10:16)
[2018-04-29] MEDS ORDERED: LORAZEPAM0.5 MG PO (10:17)
[2018-04-29] MEDS ORDERED: ZOLPIDEM TARTRAT5 MG PO (10:18)
[2018-04-29] MEDS ORDERED: FLOVENT 22120 INHALA IH (10:18)
[2018-04-29] MEDS ORDERED: PROAIR HFA8.5 GM IH (10:18)
[2018-04-29] MEDS ORDERED: LYRICA75 MG PO (10:19)
[2018-04-29] MEDS ORDERED: OXYCODONE-ACET1 EACH PO (10:28)
[2018-04-29] MEDS ORDERED: IBU800 MG PO (10:28)
[2018-04-29 12:21] VITALS: BP 135/63
[2018-04-29 15:58] VITALS: BP 130/73
[2018-04-29 19:33] VITALS: BP 114/55
[2018-04-30] VITALS (10 sets, daily range): BP systolic 130–184; BP diastolic 76–110
[2018-04-30 05:15] LABS: HEMATOCRIT 31.5 % (36.0-46.0); HEMOGLOBIN 10.6 G/DL (11.9-15.5); MCH 28.5 PG (29.0-34.0); MCHC 33.7 G/DL (30.0-36.0); MCV 84.7 FL (83-99); PLATELET COUNT 292 K/uL (156-360); RBC DIS.WIDTH-CV 13.9 % (11.8-14.6); RED BLOOD COUNT 3.72 M/uL (3.80-5.20); WHITE BLOOD COUNT 20.2 K/uL (4.1-10.2)
[2018-04-30 06:03] LABS: CHLORIDE 105 MEQ/L (99-109); GLUCOSE 86 mg/dL (70-99); POTASSIUM 3.1 MEQ/L (3.7-5.4); SODIUM 133 MEQ/L (136-147); UREA NITROGEN (BUN) 34 mg/dL (9-23)
[2018-04-30 06:15] LABS: GFR ESTIMATE (CALCULATED) > 59 mL/min/
[2018-04-30 06:35] LABS: ABS NEUTROPHIL COUNT 16.8; ANISOCYTOSIS 1+; BURR CELLS 1+; EOSINOPHIL ABS CT 0.9; EOSINOPHILS 4.4 % (0-5.0); LYMPHOCYTES 6.1 % (15.0-45.0); MACROCYTES 1+; MONOCYTES 6.5 % (0-9.0); PLAT.SUFFICIENCY ADEQUATE; POIKILOCYTOSIS 3+; SMUDGE CELLS 3.5
[2018-04-30 06:41] LABS: BAND NEUTROPHILS 9.1 % (0-8.0); SEG.NEUTROPHILS 73.9 % (46.0-76.0)
[2018-05-01] VITALS (8 sets, daily range): BP systolic 134–182; BP diastolic 67–88
[2018-05-01 05:18] LABS: HEMATOCRIT 32.9 % (36.0-46.0); HEMOGLOBIN 10.8 G/DL (11.9-15.5); MCH 28.3 PG (29.0-34.0); MCHC 32.8 G/DL (30.0-36.0); MCV 86.1 FL (83-99); PLATELET COUNT 312 K/uL (156-360); RBC DIS.WIDTH-CV 14.3 % (11.8-14.6); RBC DIS.WIDTH-SD 44.7 % (39-53); RED BLOOD COUNT 3.82 M/uL (3.80-5.20); WHITE BLOOD COUNT 24.5 K/uL (4.1-10.2)
[2018-05-01 05:52] LABS: ALBUMIN 2.4 G/DL (3.2-4.8); ALKALINE PHOSPHATASE 215 IU/L (3-129); ALT (GPT) 21 IU/L (3-49); AST (GOT) 55 IU/L (2-34); CHLORIDE 109 MEQ/L (99-109); CREATININE 0.7 MG/DL (0.6-1.3); GFR ESTIMATE (CALCULATED) > 59 mL/min/; GLUCOSE 59 mg/dL (70-99); MAGNESIUM 1.5 mg/dl (1.3-2.7); POTASSIUM 3.4 MEQ/L (3.7-5.4); SODIUM 139 MEQ/L (136-147); TOTAL BILIRUBIN 0.8 MG/DL (0.0-1.0); TOTAL PROTEIN 6.4 G/DL (6.4-8.3); UREA NITROGEN (BUN) 23 mg/dL (9-23)
[2018-05-01 06:34] LABS: BASOPHIL (%) 0.5 % (0-1); BASOPHIL COUNT 0.1 K/uL (0-0.1); EOSINOPHIL (%) 1.4 % (0-5); EOSINOPHIL COUNT 0.3 K/uL (0-0.3); IMMATURE GRANULOCYTE (%) 2.5 % (0.0-0.7); LYMPHOCYTE (%) 5.5 % (15-42); LYMPHOCYTE COUNT 1.3 K/uL (1.0-2.8); MONOCYTE (%) 12.4 % (3-12); NEUTROPHIL (%) 77.7 % (45-76)
[2018-05-01 13:16] LABS: CREATINE KINASE 50 IU/L (1-294)
[2018-05-02 03:57] VITALS: BP 155/72
[2018-05-02 05:50] LABS: HEMATOCRIT 33.1 % (36.0-46.0); HEMOGLOBIN 10.9 G/DL (11.9-15.5); MCH 28.2 PG (29.0-34.0); MCHC 32.9 G/DL (30.0-36.0); MCV 85.5 FL (83-99); PLATELET COUNT 304 K/uL (156-360); RBC DIS.WIDTH-CV 14.6 % (11.8-14.6); RBC DIS.WIDTH-SD 45.9 % (39-53); RED BLOOD COUNT 3.87 M/uL (3.80-5.20); WHITE BLOOD COUNT 16.2 K/uL (4.1-10.2)
[2018-05-02 06:23] LABS: ABS NEUTROPHIL COUNT 11.1; ANISOCYTOSIS 1+; ATYPICAL LYMPHOCYTE 0.9 %; BAND NEUTROPHILS 2.6 % (0-8.0); BASOPHILS 0.9 %; EOSINOPHIL ABS CT 0.4; EOSINOPHILS 2.6 % (0-5.0); LYMPHOCYTES 9.6 % (15.0-45.0); MACROCYTES 1+; METAMYELOCYTES 1.8 %; MONOCYTES 14.9 % (0-9.0); MYELOCYTES 0.9 %; PLAT.SUFFICIENCY ADEQUATE; SEG.NEUTROPHILS 65.8 % (46.0-76.0)
[2018-05-02 06:34] LABS: ALBUMIN 2.3 G/DL (3.2-4.8); ALKALINE PHOSPHATASE 170 IU/L (3-129); ALT (GPT) 28 IU/L (3-49); AST (GOT) 70 IU/L (2-34); CHLORIDE 113 MEQ/L (99-109); CREATININE 0.6 MG/DL (0.6-1.3); GFR ESTIMATE (CALCULATED) > 59 mL/min/; MAGNESIUM 1.3 mg/dl (1.3-2.7); SODIUM 138 MEQ/L (136-147); TOTAL BILIRUBIN 0.7 MG/DL (0.0-1.0); TOTAL PROTEIN 5.8 G/DL (6.4-8.3); UREA NITROGEN (BUN) 17 mg/dL (9-23)
[2018-05-02 06:37] LABS: GLUCOSE 110 mg/dL (70-99); POTASSIUM 4.7 MEQ/L (3.7-5.4)
[2018-05-02 07:56] VITALS: BP 177/84
[2018-05-02 12:10] VITALS: BP 172/78
[2018-05-02 16:52] VITALS: BP 172/78
[2018-05-02 19:12] VITALS: BP 139/65
[2018-05-02 23:44] VITALS: BP 169/77
[2018-05-03 04:17] VITALS: BP 179/80
[2018-05-03 05:01] LABS: C DIFF TOXIN NEGATIVE (NEGATIVE)
[2018-05-03 05:12] LABS: HEMATOCRIT 33.7 % (36.0-46.0); HEMOGLOBIN 10.5 G/DL (11.9-15.5); MCH 28.6 PG (29.0-34.0); MCHC 31.2 G/DL (30.0-36.0); MCV 91.8 FL (83-99); PLATELET COUNT 228 K/uL (156-360); RBC DIS.WIDTH-CV 15.2 % (11.8-14.6); RBC DIS.WIDTH-SD 51.2 % (39-53); RED BLOOD COUNT 3.67 M/uL (3.80-5.20); WHITE BLOOD COUNT 16.1 K/uL (4.1-10.2)
[2018-05-03 05:41] LABS: CHLORIDE 111 MEQ/L (99-109); CREATININE 0.6 MG/DL (0.6-1.3); GFR ESTIMATE (CALCULATED) > 59 mL/min/; GLUCOSE 101 mg/dL (70-99); MAGNESIUM 1.2 mg/dl (1.3-2.7); POTASSIUM 5.7 MEQ/L (3.7-5.4); SODIUM 135 MEQ/L (136-147); UREA NITROGEN (BUN) 12 mg/dL (9-23)
[2018-05-03 07:18] VITALS: BP 177/76
[2018-05-03 12:08] VITALS: BP 175/75
[2018-05-03 15:17] VITALS: BP 164/75
[2018-05-03 17:25] VITALS: BP 129/78
[2018-05-03 19:44] VITALS: BP 145/90
[2018-05-04 00:05] VITALS: BP 158/81
[2018-05-04 03:09] VITALS: BP 150/70
[2018-05-04 09:00] VITALS: BP 128/62
[2018-05-04 12:00] VITALS: BP 119/60
[2018-05-04 17:00] VITALS: BP 148/67
[2018-05-04 19:00] VITALS: BP 140/67
[2018-05-05] VITALS (7 sets, daily range): BP systolic 134–186; BP diastolic 63–82
[2018-05-05 04:56] LABS: SODIUM 138 mEq/L (136-147)
[2018-05-05 04:58] LABS: GLUCOSE 99 mg/dL (70-99)
[2018-05-05 04:59] LABS: HEMATOCRIT 32.1 % (36.0-46.0); HEMOGLOBIN 10.8 G/DL (11.9-15.5); MCH 29.1 PG (29.0-34.0); MCHC 33.6 G/DL (30.0-36.0); PLATELET COUNT 274 K/uL (156-360); RBC DIS.WIDTH-CV 14.6 % (11.8-14.6); RED BLOOD COUNT 3.71 M/uL (3.80-5.20); WHITE BLOOD COUNT 13.1 K/uL (4.1-10.2)
[2018-05-05 05:00] LABS: MCV 86.5 FL (83-99)
[2018-05-05 05:02] LABS: CREATININE 0.7 mg/dL (0.6-1.3); GFR ESTIMATE (CALCULATED) > 59 mL/min/
[2018-05-05 05:03] LABS: UREA NITROGEN (BUN) 6 mg/dL (9-23)
[2018-05-05 05:13] LABS: CHLORIDE 105 mEq/L (99-109); POTASSIUM 4.1 mEq/L (3.7-5.4)
[2018-05-06 04:23] VITALS: BP 159/59
[2018-05-06 09:56] VITALS: BP 177/81
[2018-05-06 11:41] VITALS: BP 175/81
[2018-05-06] MEDS ORDERED: ZOLPIDEM TARTRAT5 MG PO (11:57)
[2018-05-06] MEDS ORDERED: AUGMENTIN875 MG PO (11:57)
[2018-05-06] MEDS ORDERED: ACETAMINOPHN-T1 EACH PO (11:57)
[2018-05-06] MEDS ORDERED: ELIQUIS5 MG PO (11:57)
[2018-05-06] MEDS ORDERED: LYRICA75 MG PO (11:57)
== END 2018-05-06 14:54 | DRG 682 ==
LOC: EME 16:06 → 4EAST 21:43 → ENRESERV 21:43 → EDOF 21:43 → ENRESERV 21:56 → 4EAST 22:55
PROVIDERS: Emergency Medicine; Hospitalist; Internal Medicine; Student in an Organized Health Care Education/Training Program
DX: N17.9 Acute kidney failure, unspecified (principal); G92 Toxic encephalopathy; T40.605A Adverse effect of unspecified narcotics, initial encounter; N39.0 Urinary tract infection, site not specified; B96.20 Unspecified Escherichia coli [E. coli] as the cause of diseases classified elsewhere; I95.9 Hypotension, unspecified; E87.1 Hypo-osmolality and hyponatremia; E86.0 Dehydration; R09.02 Hypoxemia; M62.82 Rhabdomyolysis; E87.6 Hypokalemia; I82.621 Acute embolism and thrombosis of deep veins of right upper extremity; T82.868A Thrombosis due to vascular prosthetic devices, implants and grafts, initial encounter; J18.9 Pneumonia, unspecified organism; K70.9 Alcoholic liver disease, unspecified; F10.20 Alcohol dependence, uncomplicated; F32.9 Major depressive disorder, single episode, unspecified; F41.9 Anxiety disorder, unspecified; G89.29 Other chronic pain; F17.200 Nicotine dependence, unspecified, uncomplicated; J44.9 Chronic obstructive pulmonary disease, unspecified; I10 Essential (primary) hypertension; I87.309 Chronic venous hypertension (idiopathic) without complications of unspecified lower extremity; L95.9 Vasculitis limited to the skin, unspecified; I78.1 Nevus, non-neoplastic; E66.9 Obesity, unspecified; S32.402A Unspecified fracture of left acetabulum, initial encounter for closed fracture; M54.30 Sciatica, unspecified side; R74.8 Abnormal levels of other serum enzymes; K52.9 Noninfective gastroenteritis and colitis, unspecified; G62.9 Polyneuropathy, unspecified; Z96.653 Presence of artificial knee joint, bilateral; Z79.82 Long term (current) use of aspirin; Z79.891 Long term (current) use of opiate analgesic; Z68.29 Body mass index [BMI] 29.0-29.9, adult
CPT/HCPCS: 70450; 70551; 71045; 71046; 73030; 73502; 73560; 74176; 76705; 80048; 80053; 81003; 82140; 82550; 82607; 82948; 83605; 83735; 84134; 84145 90; 84484; 84999; 85025; 85027; 87040; 87077; 87086; 87186; 87493; 87641; 93005; 93971; 94640; 94640 76; 97530 GP; 99202; 99281; 99285; G0480; J0360; J0696; J1644; J2060; J2310; J2405; J2543; J3370; J3411; J3475; J3480; J7030; J7040; J7050

== ENCOUNTER 2018-05-25 22:23 | Inpatient (IN) | payer OTHER ==
[~2018-05-25] VITALS: Ht 162.6 cm; Wt 65.9 kg
[~2018-05-25 22:23] MED LIST changes: +ACETAMINOPHN-T1 EACH PO; +ALPRAZOLAM0.25 M2 PO; +ELIQUIS5 MG PO; +IBU800 MG PO; +LYRICA75 MG PO; +METOPROLOL TART50 MG PO; +OXYCODONE-ACET1 EACH PO; +PROAIR HFA8.5 GM IH; +VALSARTAN-HCTZ1 EAC1 PO
[2018-05-25 23:01] LABS: CARBOXY HGB 1.8 % (0-5); METHEMOGLOBIN 1.2 % (0-1.5); PCO2 30 mm Hg (35-45); PO2 447 mm Hg (80-100); pH < 6.91 (7.35-7.45)
[2018-05-25 23:02] LABS: COMMENTS - BLOOD GASES C+; DEVICE VENT; FI02 100 %; MECHANICAL RATE 18 resp/min; MODE AC; PEEP 5 CM/H20; SITE RR; TIDAL VOLUME 450 ML; TOTAL RESP RATE 18 resp/min
[2018-05-25 23:06] LABS: INTER. NORMALIZED RATIO 1.7
[2018-05-25 23:07] LABS: AMYLASE 73 IU/L (1-118); CHLORIDE 95 mEq/L (99-109); HEMATOCRIT 32.2 % (36.0-46.0); MCH 28.2 PG (29.0-34.0); MCHC 31.1 G/DL (30.0-36.0); NRBC (%) 0.8 /100 WBC (0-0); POTASSIUM 5.8 mEq/L (3.7-5.4); RBC DIS.WIDTH-SD 53.4 % (39-53); RED BLOOD COUNT 3.54 M/uL (3.80-5.20); SODIUM 135 mEq/L (136-147)
[2018-05-25 23:09] LABS: GLUCOSE 164 mg/dL (70-99); PTT 36.9 SEC (25-37)
[2018-05-25 23:12] LABS: SERUM ETHYL ALCOHOL < 10 mg/dL
[2018-05-25 23:13] LABS: CREATININE 8.6 mg/dL (0.6-1.3); GFR ESTIMATE (CALCULATED) 5 mL/min/
[2018-05-25 23:16] LABS: LIPASE 33 U/L (1.0-51.0)
[2018-05-25 23:20] LABS: TROP-I INTERPRETATION POSITIVE; UREA NITROGEN (BUN) 104 mg/dL (9-23)
[2018-05-25 23:22] LABS: TROPONIN-I 26.77 ng/mL (0.0-0.30)
[2018-05-25 23:23] LABS: PLATELET COUNT 417 K/uL (156-360); WHITE BLOOD COUNT 93.8 K/uL (4.1-10.2)
[2018-05-26] VITALS (11 sets, daily range): BP systolic 103–150; BP diastolic 56–84
[2018-05-26 00:25] LABS: BASE EXCESS -7.4 mEq/L (-3 to +3); BICARBONATE 19.3 mEq/L (22-26); CARBOXY HGB 1.3 % (0-5); COMMENTS - BLOOD GASES C+A+; DEVICE VENTILATOR; FI02 60 %; METHEMOGLOBIN 0.8 % (0-1.5); MODE AC VC+; PCO2 44 mm Hg (35-45); PO2 198 mm Hg (80-100); SITE RR
[2018-05-26 00:26] LABS: INSPIRATION TIME 0.9 seconds; MECHANICAL RATE 22 resp/min; PEEP 5 CM/H20; TIDAL VOLUME 450 ML; TOTAL RESP RATE 26 resp/min; pH 7.25 (7.35-7.45)
[2018-05-26 00:43] LABS: HEMATOCRIT 23.7 % (36.0-46.0); MCH 28.6 PG (29.0-34.0); MCHC 32.9 G/DL (30.0-36.0); NRBC (%) 1.7 /100 WBC (0-0); PLATELET COUNT 309 K/uL (156-360); RBC DIS.WIDTH-CV 15.9 % (11.8-14.6); RBC DIS.WIDTH-SD 50.4 % (39-53)
[2018-05-26 00:48] LABS: INTER. NORMALIZED RATIO 1.7
[2018-05-26 00:55] LABS: CHLORIDE 93 mEq/L (99-109); POTASSIUM 5.1 mEq/L (3.7-5.4); SODIUM 141 mEq/L (136-147)
[2018-05-26 00:56] LABS: MAGNESIUM 2.2 mg/dL (1.3-2.7)
[2018-05-26 00:57] LABS: GLUCOSE 140 mg/dL (70-99)
[2018-05-26 01:01] LABS: CREATININE 7.9 mg/dL (0.6-1.3); GFR ESTIMATE (CALCULATED) 5 mL/min/; PHOSPHORUS 16.1 mg/dL (2.5-4.9)
[2018-05-26 01:02] LABS: UREA NITROGEN (BUN) 100 mg/dL (9-23)
[2018-05-26 01:04] LABS: HEMOGLOBIN 7.8 G/DL (11.9-15.5); PTT 184.1 SEC (25-37); RED BLOOD COUNT 2.73 M/uL (3.80-5.20); WHITE BLOOD COUNT 52.1 K/uL (4.1-10.2)
[2018-05-26 01:05] LABS: MCV 86.8 FL (83-99)
[2018-05-26 03:05] LABS: ABS NEUTROPHIL COUNT 69.3; ANISOCYTOSIS 1+; ATYPICAL LYMPHOCYTE 0.4 %; BAND NEUTROPHILS 5.1 % (0-8.0); BURR CELLS 3+; EOSINOPHIL ABS CT 0; GIANT PLATELETS 1+; LYMPHOCYTES 8.9 % (15.0-45.0); MACROCYTES 1+; METAMYELOCYTES 5.5 %; MYELOCYTES 8.4 %; NUCLEATED RBC'S 0.8; PLATELET CLUMPS PRESENT - PLATELET COUNTS APPEARS DECREASED; POIKILOCYTOSIS 3+; SEG.NEUTROPHILS 68.8 % (46.0-76.0); TOX.VACUOLIZATION 2+; TOXIC GRANULATION 2+
[2018-05-26 03:29] LABS: HEMATOCRIT 24.6 % (36.0-46.0); HEMOGLOBIN 8.2 G/DL (11.9-15.5); MCV 88.2 FL (83-99)
[2018-05-26 03:39] LABS: PCO2 29 mm Hg (35-45); PO2 96 mm Hg (80-100)
[2018-05-26 03:40] LABS: BASE EXCESS -20.9 mEq/L (-3 to +3); CARBOXY HGB 1.7 % (0-5); COMMENTS - BLOOD GASES C+A+; DEVICE VENTILATOR; FI02 40 %; INSPIRATION TIME 0.85 seconds; MECHANICAL RATE 22 resp/min; METHEMOGLOBIN 0.8 % (0-1.5); MODE AC VC+; PEEP 5 CM/H20; SITE LR A LINE; TIDAL VOLUME 450 ML; TOTAL RESP RATE 35 resp/min; pH 7.05 (7.35-7.45)
[2018-05-26 04:56] LABS: CREATINE KINASE 2646 IU/L (1-294)
[2018-05-26 05:06] LABS: PLATELET COUNT 324 K/uL (156-360)
[2018-05-26 05:08] LABS: HEMATOCRIT 23.8 % (36.0-46.0); HEMOGLOBIN 7.9 G/DL (11.9-15.5); MCH 28.3 PG (29.0-34.0); MCHC 33.2 G/DL (30.0-36.0); MCV 85.3 FL (83-99); NRBC (%) 1.8 /100 WBC (0-0); RBC DIS.WIDTH-CV 15.7 % (11.8-14.6); RBC DIS.WIDTH-SD 47.9 % (39-53); RED BLOOD COUNT 2.79 M/uL (3.80-5.20)
[2018-05-26 05:16] LABS: INTER. NORMALIZED RATIO 1.8
[2018-05-26 05:17] LABS: CHLORIDE 99 mEq/L (99-109); POTASSIUM 4.8 mEq/L (3.7-5.4); SODIUM 144 mEq/L (136-147)
[2018-05-26 05:18] LABS: MAGNESIUM 1.9 mg/dL (1.3-2.7)
[2018-05-26 05:19] LABS: GLUCOSE 159 mg/dL (70-99); PTT 59.6 SEC (25-37)
[2018-05-26 05:22] LABS: BASE EXCESS -13.7 mEq/L (-3 to +3); BICARBONATE 12.6 mEq/L (22-26); CARBOXY HGB 1.6 % (0-5); COMMENTS - BLOOD GASES C+A+; DEVICE VENTILATOR; FI02 40 %; INSPIRATION TIME 0.85 seconds; MECHANICAL RATE 22 resp/min; METHEMOGLOBIN 1.2 % (0-1.5); MODE AC VC+; PCO2 30 mm Hg (35-45); PEEP 5 CM/H20; PO2 93 mm Hg (80-100); SITE LR A LINE; TIDAL VOLUME 450 ML; TOTAL RESP RATE 37 resp/min
[2018-05-26 05:23] LABS: TRIGLYCERIDES 226 MG/DL (Normal: <150)
[2018-05-26 05:23] LABS: CREATININE 6.8 mg/dL (0.6-1.3); GFR ESTIMATE (CALCULATED) 6 mL/min/
[2018-05-26 05:23] LABS: pH 7.23 (7.35-7.45)
[2018-05-26 05:24] LABS: UREA NITROGEN (BUN) 95 mg/dL (9-23)
[2018-05-26 05:27] LABS: TROP-I INTERPRETATION POSITIVE
[2018-05-26 05:38] LABS: WHITE BLOOD COUNT 54.9 K/uL (4.1-10.2)
[2018-05-26 05:44] LABS: TROPONIN-I 162.08 ng/mL (0.0-0.30)
[2018-05-26 13:39] LABS: TROP-I INTERPRETATION POSITIVE; TROPONIN-I 334.11 ng/mL (0.0-0.30)
== END 2018-05-26 17:13 | DRG 250 ==
LOC: EME → EDBD 22:23 → EME 22:23 → CATH 23:16 → ENRESERV 05-26 00:01 → ENRESERVTM 05-26 00:01 → ENRESERVDT 05-26 00:01 → 4WEST 05-26 00:10
PROVIDERS: Emergency Medicine; Internal Medicine Cardiovascular Disease; Surgery
PROC: 5A1935Z Respiratory Ventilation, Less than 24 Consecutive Hours (ICD-10-PCS; principal; 2018-05-26)
PROC: B2151ZZ Fluoroscopy of Left Heart using Low Osmolar Contrast (ICD-10-PCS; principal; 2018-05-26)
PROC: 4A023N7 Measurement of Cardiac Sampling and Pressure, Left Heart, Percutaneous Approach (ICD-10-PCS; principal; 2018-05-26)
PROC: 03HY32Z Insertion of Monitoring Device into Upper Artery, Percutaneous Approach (ICD-10-PCS; principal; 2018-05-26)
PROC: 02HV33Z Insertion of Infusion Device into Superior Vena Cava, Percutaneous Approach (ICD-10-PCS; principal; 2018-05-26)
PROC: 02703ZZ Dilation of Coronary Artery, One Artery, Percutaneous Approach (ICD-10-PCS; principal; 2018-05-26)
PROC: B2111ZZ Fluoroscopy of Multiple Coronary Arteries using Low Osmolar Contrast (ICD-10-PCS; principal; 2018-05-26)
DX: I21.21 ST elevation (STEMI) myocardial infarction involving left circumflex coronary artery (principal); I47.2 Ventricular tachycardia; J96.00 Acute respiratory failure, unspecified whether with hypoxia or hypercapnia; K92.0 Hematemesis; N17.9 Acute kidney failure, unspecified; M62.82 Rhabdomyolysis; E87.2 Acidosis; G93.1 Anoxic brain damage, not elsewhere classified; I95.9 Hypotension, unspecified; Z51.5 Encounter for palliative care; Z66 Do not resuscitate; I25.10 Atherosclerotic heart disease of native coronary artery without angina pectoris; E78.5 Hyperlipidemia, unspecified; F41.9 Anxiety disorder, unspecified; F32.9 Major depressive disorder, single episode, unspecified; J44.9 Chronic obstructive pulmonary disease, unspecified; G89.29 Other chronic pain; I73.9 Peripheral vascular disease, unspecified; I12.9 Hypertensive chronic kidney disease with stage 1 through stage 4 chronic kidney disease, or unspecified chronic kidney disease; N18.9 Chronic kidney disease, unspecified; R79.1 Abnormal coagulation profile; T45.515A Adverse effect of anticoagulants, initial encounter; D64.9 Anemia, unspecified; E83.51 Hypocalcemia; F33.9 Major depressive disorder, recurrent, unspecified; E83.39 Other disorders of phosphorus metabolism; R40.2430 Glasgow coma scale score 3-8, unspecified time; R19.5 Other fecal abnormalities; F17.200 Nicotine dependence, unspecified, uncomplicated; R29.6 Repeated falls; Z96.653 Presence of artificial knee joint, bilateral; Z79.01 Long term (current) use of anticoagulants; Z79.891 Long term (current) use of opiate analgesic; Z86.718 Personal history of other venous thrombosis and embolism
CPT/HCPCS: 36600; 70450; 71045; 71250; 72125; 74176; 80048; 80048 91; 81003; 82150; 82330; 82550; 82803; 83605; 83690; 83735; 84100; 84478; 84484; 85014; 85018; 85025; 85027; 85610; 85730; 86850; 86900; 86901; 86920; 87070; 87077; 87186; 87205; 87641; 90832; 93005; 94002; 94003; 94640 76; 94760; 95819; 99202; 99281; 99285; C1725; C1751; C1760; C1769; C1887; C1894; C9113; G0480; J0295; J0461; J1644; J2250; J3010; J7030; J7050; J7070; S0028